=== PATIENT | male | born 1950 | race Caucasian/White ===

== ENCOUNTER 2024-04-01 22:47 | Inpatient (IN) | payer BC, MEDICARE ==
[2024-04-02] MEDS ORDERED: Guaifenesin DM 100-10/5 ML UDCUP PO PRN (00:30)
[2024-04-02] MEDS ORDERED: Acetaminophen 325 MG TAB PO PRN (00:30)
[2024-04-02] MEDS ORDERED: Ondansetron PF 4 MG/2 ML Vial IVP PRN (00:30)
[2024-04-02] MEDS ORDERED: Zolpidem Tartrate 5 MG TAB PO PRN (00:30)
[2024-04-02] MEDS ORDERED: Calcium Carbonate 500 MG ChewTAB PO PRN (00:30)
[2024-04-02] MEDS: Furosemide 100 MG (10 mL) VIAL SLOW IVP SCH (00:41)
[2024-04-02] MEDS: Nitroglycerin 2% Ointment 1 INCH/1 GM Packet TOP SCH (00:41)
[2024-04-02] MEDS ORDERED: Azithromycin 500 MG in Sodium Chloride 0.9% 250 ML 250 ML IVPB SCH (01:00)
[2024-04-02] MEDS: methylPREDNISolone Sod Succ/PF 125 MG/2 ML VIAL IVP SCH (01:04)
[2024-04-02 01:13] LABS: Troponin I 0.038 ng/mL (< 0.028)
[2024-04-02] MEDS: Ipratropium/Albuterol 3 ML NEB NEB PRN (01:15)
[2024-04-02 03:44] LABS: Legionella Urinary Ag Negative (Negative); Strep pneumo Urine Ag NEGATIVE (NEGATIVE)
[2024-04-02 04:09] LABS: Troponin I 0.051 ng/mL (< 0.028)
[2024-04-02 04:12] LABS: ALT (SGPT) 222 U/L (8-55); AST (SGOT) 113 U/L (5-34); Albumin 3.5 g/dL (3.4-4.8); Alkaline Phosphatase 94 U/L (40-110); Anion Gap 16 mmol/L (10-20); BUN (Urea Nitrogen) 18 mg/dL (8.4-25.7); Bilirubin, Direct 0.6 mg/dL (0.1-0.3); Bilirubin, Total 1.4 mg/dL (0.2-1.2); CK (CPK) 108 U/L (30-200); Calc. Creatinine Clearance 66 mL/min (70-130); Calcium 9.4 mg/dL (7.8-10.44); Carbon Dioxide 26 mmol/L (23-31); Cardiac Risk 5.8 (Less than 4.5); Chloride 98 mmol/L (98-107); Cholesterol 145 mg/dl (< 200 Desired); Estimated GFR 49; Glucose 110 mg/dL (83-110); HDL Cholesterol 25 mg/dL (>60 Neg Risk); LDL Cholesterol, Calculated 104 mg/dL; Potassium 3.8 mmol/L (3.5-5.1); Protein, Total 6.2 g/dL (5.8-8.1); Sodium 136 mmol/L (136-145); Triglycerides 78 mg/dL (Less than 150)
[2024-04-02] MEDS: Furosemide 40 MG (4 mL) VIAL SLOW IVP SCH (06:31)
[2024-04-02] MEDS ORDERED: predniSONE 20 MG TAB PO SCH (08:00)
[2024-04-02] MEDS: Mometasone/Formoterol 200/5 60 PUFF INH SCH (08:50)
[2024-04-02] MEDS: Losartan 25 MG TAB PO SCH (08:54)
[2024-04-02] MEDS: Enoxaparin 40 MG (0.4 mL) SYRINGE SC SCH (08:54)
[2024-04-02] MEDS: Carvedilol 3.125 MG TAB PO SCH (08:54)
[2024-04-02] MEDS: Potassium Chloride 20 MEQ TAB PO SCH (08:54)
[2024-04-02] MEDS ORDERED: Losartan 25 MG TAB PO SCH (09:00)
[2024-04-02] MEDS: Carvedilol 6.25 MG TAB PO SCH (17:08)
[2024-04-03 05:09] LABS: Hematocrit 42.8 % (38.8-50.0); Hemoglobin 15.1 g/dL (13.5-17.5); Platelet Count 231 10x3/uL (150-450)
[2024-04-03 05:16] LABS: ALT (SGPT) 176 U/L (8-55); AST (SGOT) 68 U/L (5-34); Albumin 3.2 g/dL (3.4-4.8); Alkaline Phosphatase 79 U/L (40-110); Anion Gap 14 mmol/L (10-20); BUN (Urea Nitrogen) 27 mg/dL (8.4-25.7); Bilirubin, Direct 0.6 mg/dL (0.1-0.3); Bilirubin, Total 1.4 mg/dL (0.2-1.2); Calc. Creatinine Clearance 62 mL/min (70-130); Calcium 9.2 mg/dL (7.8-10.44); Carbon Dioxide 29 mmol/L (23-31); Chloride 99 mmol/L (98-107); Estimated GFR 50; Glucose 93 mg/dL (83-110); Potassium 4.2 mmol/L (3.5-5.1); Protein, Total 5.9 g/dL (5.8-8.1); Sodium 138 mmol/L (136-145)
[2024-04-03 06:01] LABS: Bilirubin Neg (Negative); Blood, Urine Negative (Negative); Clarity Clear (Clear); Glucose, Urine (Dipstick) Normal (Negative); Ketone, Urine 5 mg/dL (Negative); Leukocyte Negative (Negative); Nitrite Negative (Negative); Protein, Urine (Dipstick) 30 mg/dl (Neg-Trace); Specific Gravity, Urine 1.015 (1.005-1.030); Urobilinogen Normal mg/dL (Less than 2)
[2024-04-03] MEDS ORDERED: Nitroglycerin 50 MG/250 ML BOT 250 ML ONE (06:10)
[2024-04-03] MEDS ORDERED: Heparin 10,000 UNITS/ 10 ML VIAL ONE (06:10)
[2024-04-03] MEDS ORDERED: Verapamil 5 MG/2 ML VIAL ONE (06:10)
[2024-04-03] MEDS ORDERED: Lidocaine 1% PF 5 ML VIAL ONE (06:11)
[2024-04-03 06:42] LABS: CAUTI Indications for Culture Fever or rigors; RBC/HPF 0-3 HPF (0-3); WBC/HPF 0-3 HPF (0-3)
[2024-04-03 06:43] LABS: Bacteria/HPF 2+ HPF (None Seen); Renal Epithelial 0-3 HPF (None Seen); Squamous Epithelial None Seen HPF (0-3)
[2024-04-03 06:44] LABS: Urine Culture Reflex No No
[2024-04-03] MEDS ORDERED: Midazolam HCl 2 mg/2 ml Vial ONE (06:48)
[2024-04-03] MEDS ORDERED: fentaNYL 50 mcg/mL 1 mL Vial ONE (06:48)
[2024-04-03] MEDS ORDERED: Acetylcysteine 800 MG/4 ML VIAL ONE (06:52)
[2024-04-03] MEDS: Furosemide 20 MG TAB PO SCH (10:47)
[2024-04-03] MEDS: Ivabradine 5 MG TAB PO SCH (10:48)
[2024-04-03] MEDS: Sacubitril 24MG/Valsartan 26 MG TAB PO SCH (10:48)
[2024-04-03] MEDS ORDERED: Iopamidol 300 61% 100 ML VIAL FS ONE (12:13)
[2024-04-04 04:16] LABS: Hematocrit 44.6 % (38.8-50.0); Hemoglobin 15.5 g/dL (13.5-17.5); Platelet Count 231 10x3/uL (150-450)
[2024-04-04 04:38] LABS: ALT (SGPT) 122 U/L (8-55); AST (SGOT) 38 U/L (5-34); Alkaline Phosphatase 72 U/L (40-110); Anion Gap 14 mmol/L (10-20); BUN (Urea Nitrogen) 28 mg/dL (8.4-25.7); Bilirubin, Direct 0.5 mg/dL (0.1-0.3); Bilirubin, Total 1.1 mg/dL (0.2-1.2); Calc. Creatinine Clearance 61 mL/min (70-130); Calcium 8.9 mg/dL (7.8-10.44); Carbon Dioxide 26 mmol/L (23-31); Chloride 99 mmol/L (98-107); Estimated GFR 50; Globulin 2.7 g/dL (2.4-3.5); Glucose 89 mg/dL (83-110); Potassium 4.1 mmol/L (3.5-5.1); Protein, Total 5.7 g/dL (5.8-8.1); Sodium 135 mmol/L (136-145)
[2024-04-04 07:19] VITALS: BMI 29.0
[2024-04-04 07:59] VITALS: BP 125/76; TEMP 97.8
[2024-04-04 08:56] LABS: Creatinine, Urine 118.01 mg/dL (63-166)
[2024-04-04] MEDS: Senokot S 8.6-50 MG TAB PO PRN (09:28)
== END 2024-04-04 12:58 | disposition home or self-care (01) | DRG 286 ==
LOC: UNDOADMIN 22:47 → CSHTELE 22:47
PROVIDERS: ADMIT Student in an Organized Health Care Education/Training Program; ATTEND Family Medicine
PROC: 4A023N7 Measurement of Cardiac Sampling and Pressure, Left Heart, Percutaneous Approach (ICD-10-PCS; principal; 2024-04-03)
PROC: B2111ZZ Fluoroscopy of Multiple Coronary Arteries using Low Osmolar Contrast (ICD-10-PCS; 2024-04-03)
PROC: B2151ZZ Fluoroscopy of Left Heart using Low Osmolar Contrast (ICD-10-PCS; 2024-04-03)
DX: I13.0 Hypertensive heart and chronic kidney disease with heart failure and stage 1 through stage 4 chronic kidney disease, or unspecified chronic kidney disease (principal); I50.23 Acute on chronic systolic (congestive) heart failure; J96.01 Acute respiratory failure with hypoxia; R74.01 Elevation of levels of liver transaminase levels; G47.33 Obstructive sleep apnea (adult) (pediatric); R91.1 Solitary pulmonary nodule; J45.909 Unspecified asthma, uncomplicated; E04.1 Nontoxic single thyroid nodule; I42.0 Dilated cardiomyopathy; N18.9 Chronic kidney disease, unspecified; Z90.49 Acquired absence of other specified parts of digestive tract; Z79.899 Other long term (current) drug therapy; Z79.51 Long term (current) use of inhaled steroids
CPT/HCPCS: 36415; 71045; 80048; 80053; 80061; 80076; 81001; 82550; 82570; 83880; 84145; 84156; 84443; 84484; 85014; 85018; 85049; 87449; 87899; 93306; 93458; 94640; 94760; 94762; 99152; C1769; C1894; J1644; J1650; J1940; J2250; J2930; J3010; J7620; Q9967

== ENCOUNTER 2024-10-08 13:43 | Outpatient (CLI) | payer BC | END 2024-10-08 13:44 | disposition home or self-care (01) | LOC: CSHCT 13:43 | PROVIDERS: ATTEND Nurse Practitioner Community Health | DX: E04.1 Nontoxic single thyroid nodule (principal); R91.8 Other nonspecific abnormal finding of lung field; E04.2 Nontoxic multinodular goiter | CPT/HCPCS: 71250; 76536 ==